=== PATIENT | female | born 1995 | race Two or more races ===

== ENCOUNTER → 2017-04-30 | Outpatient (CLI) | payer BC ==
[2017-04-30 12:16] LABS: Basophils # (auto) 0 uL; Basophils % (auto) 0.1 % (0.0-2.0); Eosinophils # (auto) 0 uL; Eosinophils % (auto) 0.4 % (0.0-7.0); Hematocrit 34.2 % (36.0-46.0); Hemoglobin 11.9 g/dL (12.2-16.2); Lymphocytes % (auto) 15.8 % (10.0-50.0); Mean Corpuscular Hemoglobin 30.1 pg (28.0-32.0); Mean Corpuscular Hgb Conc. 34.6 g/dL (32.0-36.0); Mean Corpuscular Volume 86.8 fL (80.0-100.0); Monocytes # (auto) 0.4 uL; Neutrophils # (auto) 5.1 uL; Neutrophils % (auto) 77.7 % (37.0-80.0); Nucleated Red Blood Cells % 0.1 %; Platelet Count (auto) 162 10^3/uL (140-450); Red Blood Cells 3.94 10^6/uL (4.0-5.20); Red Cell Distribution Width 13.8 % (11.8-14.3); White Blood Cell 6.6 10^3/uL (4.4-10.8)
[2017-05-01 04:14] LABS: RPR Non Reactive (Non Reactive)
== END | disposition home or self-care (01) ==
LOC: LAB 11:25
PROVIDERS: ATTEND Obstetrics & Gynecology
DX: Z34.00 Encounter for supervision of normal first pregnancy, unspecified trimester (principal); Z3A.00 Weeks of gestation of pregnancy not specified
CPT/HCPCS: 36415; 85025; 86592; 86762; 86850; 86900; 86901; 87086; 87340

== ENCOUNTER → 2017-07-12 | Outpatient (CLI) | payer BC ==
[2017-07-12 07:48] LABS: Basophils # (auto) 0 uL; Basophils % (auto) 0.3 % (0.0-2.0); Eosinophils # (auto) 0 uL; Eosinophils % (auto) 0.5 % (0.0-7.0); Lymphocytes # (auto) 1.2 uL; Lymphocytes % (auto) 15.4 % (10.0-50.0); Mean Corpuscular Hemoglobin 29.6 pg (28.0-32.0); Mean Corpuscular Hgb Conc. 34.2 g/dL (32.0-36.0); Mean Corpuscular Volume 86.4 fL (80.0-100.0); Monocytes # (auto) 0.7 uL; Monocytes % (auto) 9.2 % (0.0-12.0); Neutrophils % (auto) 74.6 % (37.0-80.0); Platelet Count (auto) 141 10^3/uL (140-450); Red Blood Cells 4.06 10^6/uL (4.0-5.20); Red Cell Distribution Width 12.9 % (11.8-14.3)
== END | disposition home or self-care (01) ==
LOC: LAB 07:35
PROVIDERS: ATTEND Obstetrics & Gynecology
DX: O99.810 Abnormal glucose complicating pregnancy (principal); Z3A.00 Weeks of gestation of pregnancy not specified
CPT/HCPCS: 36415; 82951; 85025

== ENCOUNTER 2017-09-29 10:03 | Observation (INO) | payer BC ==
[2017-09-29] MEDS ORDERED: PREN-96 PO (12:24)
== END 2017-09-29 12:00 | disposition home or self-care (01) | DRG 782 ==
LOC: LDRP 10:03
PROVIDERS: ADMIT Specialist; ATTEND Specialist
DX: O48.0 Post-term pregnancy (principal); Z3A.40 40 weeks gestation of pregnancy
CPT/HCPCS: 59025; 76818; 81002; G0378

== ENCOUNTER 2017-09-30 01:19 | Observation (INO) | payer BC ==
[~2017-09-30 01:19] MED LIST: PREN-96 PO
== END 2017-09-30 02:12 | disposition home or self-care (01) | DRG 782 ==
LOC: LDRP 01:19
PROVIDERS: ADMIT Specialist; ATTEND Specialist
DX: O26.853 Spotting complicating pregnancy, third trimester (principal); O48.0 Post-term pregnancy; Z3A.40 40 weeks gestation of pregnancy
CPT/HCPCS: 59025; 81002; G0378

== ENCOUNTER 2017-10-01 10:00 | Observation (INO) | payer BC | END 2017-10-01 12:00 | disposition home or self-care (01) | DRG 782 | LOC: LDRP 10:00 | PROVIDERS: ADMIT Specialist; ATTEND Specialist | DX: O48.0 Post-term pregnancy (principal); Z3A.40 40 weeks gestation of pregnancy | CPT/HCPCS: 59025; 76818; 81002; G0378 ==

== ENCOUNTER 2017-10-03 10:30 | Observation (INO) | payer BC | END 2017-10-03 12:15 | disposition home or self-care (01) | DRG 782 | LOC: LDRP 10:30 | PROVIDERS: ADMIT Specialist; ATTEND Specialist | DX: O48.0 Post-term pregnancy (principal); Z3A.40 40 weeks gestation of pregnancy | CPT/HCPCS: 59025; 76818; 81002; G0378 ==

== ENCOUNTER 2017-10-05 08:32 | Inpatient (IN) | payer BC ==
[~2017-10-05] VITALS: Ht 170.2 cm; Wt 63.5 kg
[2017-10-05] MEDS ORDERED: LACT. RINGERS/OXYTOCIN 20UNITS 1,000 ML IV SCH (09:18)
[2017-10-05] MEDS ORDERED: DERMOPLAST 60ML BOTTLE TOP PRN (09:30)
[2017-10-05] MEDS ORDERED: NALBUPHINE HCL 10 MG/1ml INJECTION IV PRN (09:30)
[2017-10-05] MEDS ORDERED: LIDOCAINE 2% (LOCAL ANESTH.) PF 5ml SDV ID ONE (09:30)
[2017-10-05] MEDS ORDERED: PHISODERM TOP SOLN 240ML BTL TOP PRN (09:30)
[2017-10-05] MEDS ORDERED: METHYLERGONOVINE MALEATE 0.2 MG/ML AMP IM PRN (09:30)
[2017-10-05 10:05] LABS: Basophils # (auto) 0 uL; Basophils % (auto) 0.2 % (0.0-2.0); Eosinophils # (auto) 0 uL; Eosinophils % (auto) 0.6 % (0.0-7.0); Hematocrit 34.9 % (36.0-46.0); Hemoglobin 11.6 g/dL (12.2-16.2); Lymphocytes # (auto) 1.2 uL; Lymphocytes % (auto) 21.7 % (10.0-50.0); Mean Corpuscular Hemoglobin 27.9 pg (28.0-32.0); Mean Corpuscular Hgb Conc. 33.1 g/dL (32.0-36.0); Mean Corpuscular Volume 84.3 fL (80.0-100.0); Monocytes # (auto) 0.4 uL; Monocytes % (auto) 7.9 % (0.0-12.0); Neutrophils # (auto) 3.9 uL; Neutrophils % (auto) 69.6 % (37.0-80.0); Nucleated Red Blood Cells % 0.1 %; Platelet Count (auto) 149 10^3/uL (140-450); Red Blood Cells 4.14 10^6/uL (4.0-5.20); Red Cell Distribution Width 15.7 % (11.8-14.3); White Blood Cell 5.7 10^3/uL (4.4-10.8)
[2017-10-05 10:17] LABS: INR 0.89 (0.9-1.15); Partial Thromboplastin Time 30.6 sec (23.78-33.04); Prothrombin Time 9.6 sec (9.27-12.13)
[2017-10-05 10:24] LABS: Albumin 2.6 g/dL (3.4-5.0); BUN/Creatinine Ratio 16.1; Bilirubin, Total 0.2 mg/dL (0.2-1.0); Calcium 8.4 mg/dL (8.5-10.1); Potassium 3.8 mmol/L (3.5-5.1); Total Protein 6.3 g/dL (6.4-8.2)
[2017-10-05 10:48] LABS: Urine Bacteria FEW /hpf (None Seen); Urine Blood Negative /uL (Negative); Urine Mucus FEW (None Seen); Urine Specific Gravity 1.027 (1.001-1.035); Urine WBC 3 /hpf (0 - 5)
[2017-10-05] MEDS: LACTATED RINGER'S 1,000 ML IV SCH ×2 (11:02→17:18)
[2017-10-06] MEDS: LACTATED RINGER'S 1,000 ML IV SCH ×3 (01:18→20:00)
[2017-10-06] MEDS ORDERED: fentaNYL CITRATE 100 MCG/2 ML VL IV ONE (01:30)
[2017-10-06] MEDS ORDERED: LIDOCAINE HCL 2 %PF INJ 10ML AMP IJ ONE (01:30)
[2017-10-06] MEDS ORDERED: fentaNYL W ROPIVACAINE 150 ML EPI SCH (01:30)
[2017-10-06] MEDS ORDERED: NALOXONE HCL 0.4 MG/ML VIAL IV ONE (01:30)
[2017-10-06] MEDS ORDERED: ePHEDrine SULFATE 50 MG/ML AMP IV ONE (01:30)
[2017-10-06] MEDS ORDERED: WITCH HAZEL-GLYCERIN PAD TOP PRN (01:45)
[2017-10-06] MEDS ORDERED: LIDOCAINE 2% (LOCAL ANESTH.) PF 5ml SDV ONE (02:11)
[2017-10-06 07:06] LABS: RPR Non Reactive (Non Reactive)
[2017-10-06] MEDS ORDERED: SODIUM BICARBONATE 8.4 % INJ 50ML VIAL IV ONE (09:35)
[2017-10-06] MEDS ORDERED: LIDOCAINE W/ EPINEPHRINE 2% INJ 20ML VIAL ONE (09:35)
[2017-10-06] MEDS ORDERED: fentaNYL CITRATE 100 MCG/2 ML VL ONE (09:38)
[2017-10-06] MEDS ORDERED: MORPHINE SULF(PF) 0.5MG/ML 10ML VIAL ONE (09:38)
[2017-10-06] MEDS ORDERED: PHENYLEPHRINE HCL 10 MG/ML VL ONE (09:52)
[2017-10-06] MEDS ORDERED: DEXAMETHASONE SOD PHOS 10MG/1ML VIAL INJ ONE (09:53)
[2017-10-06] MEDS ORDERED: ONDANSETRON HCL 4 MG/2 ML VIAL ONE (09:53)
[2017-10-06] MEDS ORDERED: diphenhdrAMINE HCL 50 MG/1 ML VL ONE (09:53)
[2017-10-06] MEDS ORDERED: ePHEDrine SULFATE 50 MG/ML AMP ONE (09:53)
[2017-10-06] MEDS ORDERED: OXYTOCIN 10 UNIT/ML 10ML VIAL ONE (09:53)
[2017-10-06] MEDS ORDERED: LACT. RINGERS/OXYTOCIN 20UNITS 1,000 ML IV SCH (10:26)
[2017-10-06] MEDS ORDERED: ONDANSETRON HCL 4 MG/2 ML VIAL IV PRN ×3 (10:30→12:30)
[2017-10-06] MEDS: ceFAZolin 1GM/50ML 50 ML IV SCH ×2 (10:30→19:00)
[2017-10-06] MEDS ORDERED: KETOROLAC TROMETH 30 MG/ML 1ML VIAL IV PRN (10:30)
[2017-10-06] MEDS ORDERED: NALOXONE HCL 0.4 MG/ML VIAL IV PRN (10:45)
[2017-10-06] MEDS ORDERED: OXYTOCIN 10UNIT/ML 1ML VIAL ONE ×2 (11:00)
[2017-10-06] MEDS ORDERED: MORPHINE SULF INJ 2 MG/ML SYRINGE 1ML IV PRN (12:30)
[2017-10-06] MEDS: KETOROLAC TROMETH 30 MG/ML 1ML VIAL IV PRN ×2 (14:33→23:12)
[2017-10-06] MEDS: diphenhdrAMINE HCL 50 MG/1 ML VL IV PRN ×3 (14:33→23:16)
[2017-10-06 15:14] VITALS: BP 132/74
[2017-10-06 17:09] VITALS: BP 115/56
[2017-10-06 20:02] LABS: Basophils # (auto) 0 uL; Basophils % (auto) 0.4 % (0.0-2.0); Eosinophils # (auto) 0 uL; Hematocrit 34.1 % (36.0-46.0); Hemoglobin 11.6 g/dL (12.2-16.2); Lymphocytes # (auto) 0.9 uL; Lymphocytes % (auto) 8.2 % (10.0-50.0); Mean Corpuscular Hemoglobin 28.9 pg (28.0-32.0); Mean Corpuscular Hgb Conc. 34.1 g/dL (32.0-36.0); Mean Corpuscular Volume 84.8 fL (80.0-100.0); Monocytes # (auto) 0.8 uL; Monocytes % (auto) 7.1 % (0.0-12.0); Neutrophils % (auto) 84.3 % (37.0-80.0); Platelet Count (auto) 169 10^3/uL (140-450); Red Blood Cells 4.02 10^6/uL (4.0-5.20); Red Cell Distribution Width 15.8 % (11.8-14.3); White Blood Cell 10.6 10^3/uL (4.4-10.8)
[2017-10-06 23:10] VITALS: BP 118/57
[2017-10-07] MEDS: LACTATED RINGER'S 1,000 ML IV SCH (01:18)
[2017-10-07] MEDS: ceFAZolin 1GM/50ML 50 ML IV SCH (02:53)
[2017-10-07 03:17] VITALS: BP 106/52
[2017-10-07 07:15] VITALS: BP 115/58
[2017-10-07 07:34] LABS: Basophils # (auto) 0 uL; Basophils % (auto) 0.2 % (0.0-2.0); Eosinophils # (auto) 0 uL; Eosinophils % (auto) 0.2 % (0.0-7.0); Hematocrit 28.4 % (36.0-46.0); Hemoglobin 9.7 g/dL (12.2-16.2); Lymphocytes # (auto) 1.8 uL; Lymphocytes % (auto) 19.9 % (10.0-50.0); Mean Corpuscular Hemoglobin 29.3 pg (28.0-32.0); Mean Corpuscular Hgb Conc. 34.3 g/dL (32.0-36.0); Mean Corpuscular Volume 85.4 fL (80.0-100.0); Monocytes # (auto) 0.9 uL; Monocytes % (auto) 9.3 % (0.0-12.0); Neutrophils # (auto) 6.5 uL; Neutrophils % (auto) 70.4 % (37.0-80.0); Platelet Count (auto) 136 10^3/uL (140-450); Red Blood Cells 3.32 10^6/uL (4.0-5.20); Red Cell Distribution Width 15.6 % (11.8-14.3); White Blood Cell 9.3 10^3/uL (4.4-10.8)
[2017-10-07] MEDS ORDERED: ceFAZolin 1GM/50ML 50 ML IV ONE (09:46)
[2017-10-07] MEDS: DOCUSATE SOD 100 MG CAP PO SCH ×2 (09:54→20:42)
[2017-10-07] MEDS ORDERED: BISACODYL 10 MG RECT SUPP PR PRN (10:00)
[2017-10-07] MEDS ORDERED: HYDROcodone-ACET 5/325MG TAB PO PRN ×3 (10:00→16:15)
[2017-10-07] MEDS: DOCUSATE CALCIUM 240 MG CAP PO SCH (11:00)
[2017-10-07 11:10] VITALS: BP 113/62
[2017-10-07] MEDS: SIMETHICONE 80 MG CHEWABLE TABLET PO SCH ×3 (11:43→20:47)
[2017-10-07] MEDS: IBUPROFEN 800 MG TAB PO PRN ×2 (11:44→20:42)
[2017-10-07 15:00] VITALS: BP 112/59
[2017-10-07] MEDS ORDERED: ACETAMINOPHEN 325 MG TAB PO PRN (16:00)
[2017-10-07 19:00] VITALS: BP 122/64
[2017-10-08 03:45] VITALS: BP 132/74
[2017-10-08] MEDS ORDERED: TETANUS-DIPTH-ACEL PERTUSSIS 0.5ML SYRG IM ONE (05:30)
[2017-10-08 06:31] VITALS: BP 137/83
[2017-10-08] MEDS: IBUPROFEN 800 MG TAB PO PRN ×3 (06:40→22:56)
[2017-10-08] MEDS: SIMETHICONE 80 MG CHEWABLE TABLET PO SCH ×4 (06:40→22:00)
[2017-10-08] MEDS: DOCUSATE CALCIUM 240 MG CAP PO SCH (10:00)
[2017-10-08] MEDS: DOCUSATE SOD 100 MG CAP PO SCH ×2 (10:00→22:00)
[2017-10-08 10:45] VITALS: BP 139/77
[2017-10-08 15:30] VITALS: BP 139/85
[2017-10-08 19:00] VITALS: BP 140/86
[2017-10-08 23:00] VITALS: BP 132/76
[2017-10-09 02:58] VITALS: BP 142/73
[2017-10-09] MEDS: SIMETHICONE 80 MG CHEWABLE TABLET PO SCH (06:00)
[2017-10-09 07:15] VITALS: BP 130/66
[2017-10-09] MEDS: IBUPROFEN 800 MG TAB PO PRN (09:21)
[2017-10-09] MEDS: DOCUSATE SOD 100 MG CAP PO SCH (09:21)
== END 2017-10-09 09:25 | disposition home or self-care (01) | DRG 766 ==
LOC: OBSVTOIN 08:32 → LDRP 08:32
PROVIDERS: ADMIT Obstetrics & Gynecology; ATTEND Obstetrics & Gynecology
PROC: 3E033VJ Introduction of Other Hormone into Peripheral Vein, Percutaneous Approach (ICD-10-PCS; 2017-10-05)
PROC: 10D00Z1 Extraction of Products of Conception, Low, Open Approach (ICD-10-PCS; principal; 2017-10-06 09:36)
DX: O48.0 Post-term pregnancy (principal); O76 Abnormality in fetal heart rate and rhythm complicating labor and delivery; O61.0 Failed medical induction of labor; Z37.0 Single live birth; Z3A.41 41 weeks gestation of pregnancy; Z83.3 Family history of diabetes mellitus; Z23 Encounter for immunization
CPT/HCPCS: 36415; 51702; 59025; 76818; 80053; 81001; 81002; 85025; 85610; 85730; 86592; 86850; 86900; 86901; 90715; 96361; 96365; 96366; 96372; 96374; 96375; J0690; J1100; J1885; J2001; J2405; J2590; J3010